=== PATIENT | female | born 1995 ===

== ENCOUNTER 2023-07-07 20:39 | Inpatient (IN) | payer OTHER ==
[2023-07-07 20:48] VITALS: BMI 30.1
[2023-07-07] MEDS ORDERED: LABETALOL HCL 5 MG/1 ML (100MG/20 ML VIAL) IVPUSH ONE (22:21)
[2023-07-07] MEDS: ELECTROLYTE-148 SOLN 1,000 ML IV SCH (22:30)
[2023-07-07] MEDS ORDERED: LABETALOL HCL 20 MG/4 ML VIAL ONE (22:32)
[2023-07-07 23:26] LABS: BASO % 0.3 % (0-2.0); EOS % 0.3 % (0-4.5); HEMATOCRIT 38.2 % (32.4-45.2); HEMOGLOBIN 13.2 GM/dL (10.7-15.3); LYMPH % 26.5 % (8-40); MCH 30.7 pg (25.7-33.7); MCHC 34.4 g/dl (32.0-36.0); MEAN CELL VOLUME 89.1 fl (80-96); MEAN PLT VOLUME 9.2 fl (7.5-11.1); MONO % 9.7 % (3.8-10.2); NEUT % 63.2 % (42.8-82.8); PLATELET COUNT 217 10^3/uL (134-434); RBC 4.28 M/mm3 (3.60-5.2); RDW 12.7 % (11.6-15.6); WHITE BLOOD COUNT 10.1 K/mm3 (4.0-10.0)
[2023-07-07 23:32] LABS: INR 1.03 (0.83-1.09)
[2023-07-07 23:35] LABS: ACTIVATED PTT 29.5 SECONDS (25.2-36.5)
[2023-07-07] MEDS: LABETALOL HCL 100 MG TABLET (FP) PO SCH (23:40)
[2023-07-07 23:51] LABS: URIC ACID 4.6 mg/dL (2.6-7.2)
[2023-07-08] MEDS ORDERED: OXYTOCIN 30 UNITS in 0.9% NS 30 UNIT/500 ML INFUS.BAG IVPB SCH (00:45)
[2023-07-08 00:46] LABS: HIV INTERPRETATION NEGATIVE (NEGATIVE)
[2023-07-08 01:46] LABS: POTASSIUM 3.6 mmol/L (3.5-5.1)
[2023-07-08 01:48] LABS: CALCIUM 8.2 mg/dL (8.5-10.1)
[2023-07-08 01:49] LABS: ALBUMIN 2.7 g/dl (3.4-5.0); BLOOD UREA NITROGEN 5.1 mg/dL (7-18)
[2023-07-08 01:53] LABS: CREATININE 0.7 mg/dL (0.55-1.3)
[2023-07-08 01:54] LABS: BILIRUBIN,TOTAL 0.2 mg/dL (0.2-1); TOT PROT 6.4 g/dl (6.4-8.2)
[2023-07-08] MEDS: ELECTROLYTE-148 SOLN 1,000 ML IV SCH ×2 (06:14→14:30)
[2023-07-08] MEDS: LABETALOL HCL 100 MG TABLET (FP) PO SCH (11:26)
[2023-07-08] MEDS ORDERED: OXYTOCIN 30 UNITS in 0.9% NS 30 UNIT/500 ML INFUS.BAG IVPB ONE (16:32)
[2023-07-08] MEDS ORDERED: ePHEDrine SULFATE 50 MG/1 ML AMPULE ONE (16:33)
[2023-07-08] MEDS ORDERED: FENTANYL CITRATE/PF 50 MCG/ML VIAL ONE ×2 (16:33→17:39)
[2023-07-08] MEDS ORDERED: ceFAZolin SODIUM 1 GM VIAL ONE (16:33)
[2023-07-08] MEDS ORDERED: SODIUM CHLORIDE 0.9% P/F 10 ML VIAL IJ ONE ×2 (16:33)
[2023-07-08] MEDS ORDERED: PHENYLEPHRINE HCL 10 MG/1 ML SINGLE DOSE VIAL ONE (16:33)
[2023-07-08] MEDS ORDERED: morphine SULFATE/PF 1 MG/2 ML (2cc Syringe - QUVA) ONE (16:33)
[2023-07-08] MEDS ORDERED: ONDANSETRON 4 MG/2 ML VIAL ONE (16:33)
[2023-07-08] MEDS ORDERED: SUCCINYLCHOLINE CHLORIDE 200 MG/10 ML SYRINGE ONE (16:36)
[2023-07-08] MEDS ORDERED: morphine SULFATE/PF 1 MG/2 ML (2cc Syringe - QUVA) IT ONE (17:27)
[2023-07-08] MEDS ORDERED: ONDANSETRON 4 MG/2 ML VIAL IVPUSH PRN (17:27)
[2023-07-08] MEDS ORDERED: MIDAZOLAM HCL 2 MG/2 ML SINGLE DOSE VIAL ONE ×2 (17:37→17:41)
[2023-07-08] MEDS ORDERED: OXYTOCIN 10 UNITS/ML VIAL ONE (17:43)
[2023-07-08] MEDS ORDERED: LABETALOL HCL 20 MG/4 ML VIAL ONE (18:03)
[2023-07-08] MEDS ORDERED: ACETAMINOPHEN 325 MG TABLET (FP) PO PRN (18:36)
[2023-07-08] MEDS ORDERED: IBUPROFEN 800 MG/8 ML IJ IVPB PRN (18:36)
[2023-07-08] MEDS ORDERED: METHYLERGONOVINE MALEATE 0.2 MG/1 ML AMP IM PRN (18:36)
[2023-07-08] MEDS ORDERED: CITRIC ACID/SODIUM CITRATE 30 ML UNIT-DOSE CUP PO ONE (18:39)
[2023-07-08] MEDS ORDERED: NIFEdipine E.R. 30 MG TABLET PO ONE (19:37)
[2023-07-08] MEDS ORDERED: ACETAMINOPHEN INJECTION 100 ML IVPB ONE (19:38)
[2023-07-08] MEDS ORDERED: OXYTOCIN 20 UNITS in 0.9% NS 20 UNIT/1,000 ML INFUS.BAG IV ONE (19:38)
[2023-07-08] MEDS: NIFEdipine E.R. 30 MG TABLET PO SCH (19:44)
[2023-07-08] MEDS: OXYTOCIN 20 UNITS in 0.9% NS 20 UNIT/1,000 ML INFUS.BAG IV SCH (19:45)
[2023-07-08] MEDS: ACETAMINOPHEN 1000 MG/100 ML BAG IVPB PRN (19:50)
[2023-07-08] MEDS: LABETALOL HCL 200 MG TABLET (FP) PO SCH (21:32)
[2023-07-09] MEDS: OXYTOCIN 20 UNITS in 0.9% NS 20 UNIT/1,000 ML INFUS.BAG IV SCH (05:00)
[2023-07-09] MEDS: ACETAMINOPHEN 1000 MG/100 ML BAG IVPB PRN (06:00)
[2023-07-09] MEDS ORDERED: oxyCODONE HCL 5 MG TABLET PO PRN (06:36)
[2023-07-09 07:14] LABS: BASO % 0.2 % (0-2.0); EOS % 0.2 % (0-4.5); HEMATOCRIT 31.6 % (32.4-45.2); HEMOGLOBIN 10.6 GM/dL (10.7-15.3); MCH 30.6 pg (25.7-33.7); MCHC 33.5 g/dl (32.0-36.0); MEAN CELL VOLUME 91.2 fl (80-96); MEAN PLT VOLUME 9.1 fl (7.5-11.1); NEUT % 75.6 % (42.8-82.8); PLATELET COUNT 162 10^3/uL (134-434); RBC 3.46 M/mm3 (3.60-5.2); RDW 12.8 % (11.6-15.6); WHITE BLOOD COUNT 12.7 K/mm3 (4.0-10.0)
[2023-07-09] MEDS: PRENATAL VITAMINS W/ FOLIC ACID TABLET (FP) PO SCH (10:58)
[2023-07-09] MEDS: LABETALOL HCL 200 MG TABLET (FP) PO SCH ×2 (10:58→21:48)
[2023-07-09] MEDS: NIFEdipine E.R. 30 MG TABLET PO SCH (10:58)
[2023-07-09] MEDS: FERROUS SO4 325 MG TABLET (FP) PO SCH ×2 (10:58→21:48)
[2023-07-09] MEDS: SIMETHICONE 80 MG TAB.CHEW (FP) PO PRN ×2 (10:59→19:32)
[2023-07-09] MEDS: IBUPROFEN 600 MG TABLET (FP) PO PRN (13:00)
[2023-07-09 15:08] LABS: BENZODIAZEPINES, UR Negative ng/mL (Cutoff=200); CANNABINOIDS, URINE Negative ng/mL (Cutoff=20); METHADONE, URINE Negative ng/mL (Cutoff=300); OPIATES, UR Negative ng/mL (Cutoff=300); PHENCYCLIDINE, URINE Negative ng/mL (Cutoff=25)
[2023-07-09] MEDS ORDERED: BISACODYL 10 MG SUPP.RECT RC PRN (18:36)
[2023-07-09] MEDS: SENNOSIDES/DOCUSATE COMBO (SENNA PLUS) TABLET (UD) PO PRN (19:32)
[2023-07-09] MEDS: oxyCODONE HCL 5 MG TABLET PO PRN (19:32)
[2023-07-10] MEDS: SIMETHICONE 80 MG TAB.CHEW (FP) PO PRN ×2 (01:05→05:55)
[2023-07-10] MEDS: oxyCODONE HCL 5 MG TABLET PO PRN ×2 (01:05→05:55)
[2023-07-10] MEDS: PRENATAL VITAMINS W/ FOLIC ACID TABLET (FP) PO SCH (10:39)
[2023-07-10] MEDS: FERROUS SO4 325 MG TABLET (FP) PO SCH ×2 (10:39→21:16)
[2023-07-10] MEDS: NIFEdipine E.R. 30 MG TABLET PO SCH (10:50)
[2023-07-10] MEDS: LABETALOL HCL 200 MG TABLET (FP) PO SCH ×2 (10:50→21:17)
[2023-07-10] MEDS: IBUPROFEN 600 MG TABLET (FP) PO PRN (16:03)
[2023-07-10] MEDS: SENNOSIDES/DOCUSATE COMBO (SENNA PLUS) TABLET (UD) PO PRN (21:17)
[2023-07-11] MEDS: FERROUS SO4 325 MG TABLET (FP) PO SCH (09:10)
[2023-07-11] MEDS: SIMETHICONE 80 MG TAB.CHEW (FP) PO PRN (09:10)
[2023-07-11] MEDS: PRENATAL VITAMINS W/ FOLIC ACID TABLET (FP) PO SCH (09:10)
[2023-07-11] MEDS: IBUPROFEN 600 MG TABLET (FP) PO PRN (09:10)
[2023-07-11] MEDS: NIFEdipine E.R. 30 MG TABLET PO SCH (09:10)
[2023-07-11] MEDS: LABETALOL HCL 200 MG TABLET (FP) PO SCH (10:30)
[2023-07-11 11:13] VITALS: BP 131/85; PULSE 100; RESP 20; TEMP 99
== END 2023-07-11 14:15 | disposition home or self-care (01) | DRG 540 ==
LOC: JER 20:39 → JLDR 21:30 → J3W 07-08 20:24
PROVIDERS: ADMIT Obstetrics & Gynecology; ATTEND Obstetrics & Gynecology
PROC: 10D00Z1 Extraction of Products of Conception, Low, Open Approach (ICD-10-PCS; principal; 2023-07-08)
DX: O14.14 Severe pre-eclampsia complicating childbirth (principal); O69.81X0 Labor and delivery complicated by cord around neck, without compression, not applicable or unspecified; Z3A.39 39 weeks gestation of pregnancy; Z37.0 Single live birth
CPT/HCPCS: 36415; 80053; 80307; 82977; 83010; 84550; 85025; 85045; 85610; 85730; 86780; 86850; 86900; 86901; 87389; 88307-TC; 99285-25